=== PATIENT | female | born 1955 | race Two or more races ===

== ENCOUNTER 2024-11-12 07:55 | Day surgery (SDC) | payer OTHER, SELFPAY ==
[2024-11-12] VITALS (12 sets, daily range): BP systolic 100–141; BP diastolic 56–79; PULSE 55–85; RESP 11–18; TEMP 36.4; O2SAT 93–100; BMI 24.9
[2024-11-12] MEDS: DiphenhydrAMINE INJ 50 MG/ML VIAL 25 MG IV (09:44)
[2024-11-12] MEDS: ONDANSETRON INJ 2 MG/ML INJ 2 ML 4 MG IV (09:44)
[2024-11-12] MEDS: fentaNYL CIT INJ 50 mCg/ML AMP 2ML (ASD USE ONLY) IV (09:53)
[2024-11-12] MEDS: MIDAZOLAM INJ 1 MG/ML VIAL 2 ML (ASD USE ONLY) 2 MG IV (09:53)
--- NOTE | 2024-11-12 10:54 | SUR.PHASEII ---
1006 pt arrrived to pacu. responds to verbal commands then would drift back to sleep. vss.denies pain at this time. abdomen soft non tender to touch. 1036 pt disconnected from vs, stable. iv removed. pt walked to restroom with minimal assistance from nurse. pt sat down on toilet and was informed to get dressed after using toilet. nurse asked pt if she needed help, she declined help 1043 pt opened restroom door asking for help, nurse went in to assist pt. pt looked pale, skin clammy. pt stating she's going to pass out. pt was helped out of the restroom with additional staff. vs initiated, 100/56, 60, 11, 93%RA. pt skin color was more pink pt still responsive to staff. pt passing more flatus. will continue to monitor. 1100 pt stating she is feeling better and would like to get dressed. vss. 117/62, 55, 12, 95%RA
--- NOTE | 2024-11-12 11:17 | SUR.PHASEII ---
1110 pt wheeled out by wheelchair to [facility] family memberLilyl by office employee Nathaly JOHANSEN
== END 2024-11-12 11:18 | disposition home or self-care (01) ==
PROVIDERS: PCP Internal Medicine; Referring Provider Specialist; Visit Provider Specialist
PROC: 0DBE8ZX Excision of Large Intestine, Via Natural or Artificial Opening Endoscopic, Diagnostic (ICD-10-PCS; CPT 45380; principal; 2024-11-12 09:00)
DX: K63.5 Polyp of colon (principal); K64.9 Unspecified hemorrhoids; K57.30 Diverticulosis of large intestine without perforation or abscess without bleeding
CPT/HCPCS: 45380; A4649; J1200; J2250; J2405; J3010

== ENCOUNTER → 2024-11-15 | Outpatient (CLI) | payer OTHER, SELFPAY ==
[2024-11-15 10:21] LABS: Free T4 (Free Thyroxine) 1.26 ng/dL (0.89-1.76); Thyroid Stimulating Hormone 4.21 uIU/mL (0.55-4.78)
== END | disposition home or self-care (01) ==
PROVIDERS: PCP Internal Medicine; Referring Provider Internal Medicine; Visit Provider Internal Medicine
DX: R94.6 Abnormal results of thyroid function studies (principal)
CPT/HCPCS: 36415; 84439; 84443

== ENCOUNTER → 2025-05-18 | Outpatient (CLI) | payer OTHER, SELFPAY ==
[2025-05-18 08:42] LABS: Basophils # (Auto) 0.1 Thou/mm3 (0.0-0.2); Basophils % (Auto) 1 % (0-2.5); Eosinophils # (Auto) 0.1 Thou/mm3 (0.0-0.5); Eosinophils % (Auto) 1 % (0-10); Hematocrit 37.1 % (36.0-46.0); Hemoglobin 12.3 g/dL (12.0-16.0); Immature Granulocytes Auto 0.04 Thou/mm3 (0.00-0.00); Lymphocytes # (Auto) 2.1 Thou/mm3 (1.0-4.8); Lymphocytes % (Auto) 26 % (10-50); Mean Corpuscular HGB Conc 33.2 g/dl (31.0-37.0); Mean Corpuscular Hemoglobin 29.5 pg (25.0-35.0); Mean Corpuscular Volume 89 fL (80-100); Monocytes # (Auto) 0.5 Thou/mm3 (0.0-0.8); Monocytes % (Auto) 6 % (0-12); Neutrophils # (Auto) 5.2 Thou/mm3 (1.8-7.7); Neutrophils % (Auto) 65 % (37-80); Nucleated Red Blood Cell # 0.00 Thou/mm3 (0.00-0.00); Nucleated Red Blood Cell % 0 /100 WBC (0); Platelet Count 271 Thou/mm3 (140-440); RDW Standard Deviation 39.4 fL (36.4-46.3); Red Blood Count 4.17 Miln/mm3 (4.00-5.20); White Blood Count 7.9 Thou/mm3 (3.6-11.0)
[2025-05-18 08:59] LABS: Glucose Estimated Average 126 mg/dL (80-131); Hemoglobin A1C 6.0 % Hgb (4.8-6.0)
[2025-05-18 09:14] LABS: Creatinine MALB Rnd Ur 100 mg/dL (30-125); Microalbumin Creat Ratio 6 mg/gCrea (<30); Microalbumin, Random Urine 6 mg/L (0-300)
[2025-05-18 09:23] LABS: Alanine Aminotransferase 11 U/L (10-49); Albumin, Serum 4.1 gm/dL (3.4-4.8); Albumin/Globulin Ratio 2.0 (1.2-2.2); Alkaline Phosphatase 84 U/L (46-116); Anion Gap 7 (7-16); Aspartate Amino Transferase 15 U/L (0-34); BUN/Creatinine Ratio 15 Ratio (12-20); Bilirubin,Total 0.3 mg/dL (0.3-1.2); Blood Urea Nitrogen 12 mg/dL (9-23); Calcium 9.1 mg/dL (8.3-10.6); Calcium (Corrected) 9.1 mg/dL (8.5-10.1); Carbon Dioxide 29.3 mMol/L (20.0-31.0); Cardiac Risk Estimate 4.0 RATIO (3.7-5.6); Chloride 106 mMol/L (98-107); Cholesterol 111 mg/dL (132-200); Creatinine (Component) 0.8 mg/dL (0.6-1.3); Globulin 2.1 gm/dL (2.3-3.5); Glucose 130 mg/dL (74-106); HDL Cholesterol 28 mg/dL (40-60); LDL Cholesterol,Calculated 42 mg/dL (0-130); Osmolality,Calculated 284 (275-295); Potassium 4.1 mMol/L (3.4-5.1); Sodium 142 mMol/L (136-145); Total Protein 6.2 gm/dL (5.7-8.2); Triglycerides 207 mg/dL (30-150); eGFR > 60 See Note
== END | disposition home or self-care (01) ==
LOC: COPL 07:37
PROVIDERS: PCP Internal Medicine; Referring Provider Internal Medicine; Visit Provider Internal Medicine
DX: I10 Essential (primary) hypertension (principal); E78.5 Hyperlipidemia, unspecified; E11.65 Type 2 diabetes mellitus with hyperglycemia
CPT/HCPCS: 36415; 80053; 80061; 82043; 82570; 83036; 85025

== ENCOUNTER → 2025-08-12 | Outpatient (CLI) | payer OTHER, MEDICAID, SELFPAY ==
--- NOTE | 2025-08-12 11:00 | XR_ITS ---
Examination: Screening digital mammography, bilateral Computer aided detection 3-D breast Tomosynthesis, bilateral Date and time of exam: August 12, 2025, 1038 hours, compared to mammograms dating to May 18, 2013 Indication: Screening Technique: Nonmagnified MLO, CC views of the breasts to been obtained, reconstructed from 3-D Tomosynthesis images. R2 computer aided detection program utilized for evaluation of suspicious masses and/or abnormal calcifications. 3-D Tomosynthesis images obtained. Findings: Scattered areas of fibroglandular density. Skin lesion upper outer right breast. Benign calcifications. No interval suspicious masses Impression: BI-RADS category II: Benign Findings. Recommend 1 year follow-up mammogram.
== END | disposition home or self-care (01) ==
LOC: CDIM 10:29
PROVIDERS: PCP Internal Medicine; Referring Provider Internal Medicine; Visit Provider Internal Medicine
DX: Z12.31 Encounter for screening mammogram for malignant neoplasm of breast (principal); R92.323 Mammographic fibroglandular density, bilateral breasts; R92.1 Mammographic calcification found on diagnostic imaging of breast
CPT/HCPCS: 77063; 77067